=== PATIENT | female | born 1975 | race Caucasian/White ===

== ENCOUNTER 2019-06-21 06:06 | Outpatient (CLI) | payer OTHER, SELFPAY ==
--- NOTE | 2019-06-21 08:06 | MM_ITS ---
WS: [id number] BILATERAL SCREENING DIGITAL MAMMOGRAM WITH CAD HISTORY: SCREENING COMPARISON: 04/13/2018 Bilateral CC and MLO views submitted. Computer aided detection analyzed. Breast composition: The breasts are heterogeneously dense, which may obscure small masses. No suspici ous masses, microcalcifications or architectural distortion. Benign calcifications in each breast. MM/[place] [id number] IMPRESSION: BI-RADS: 2-Benign FOLLOW UP: 1 Year Follow-up
== END 2019-06-21 06:07 | disposition home or self-care (01) ==
LOC: RADSHAW 06:14
PROVIDERS: Family Provider Electrodiagnostic Medicine; PCP Electrodiagnostic Medicine; Visit Provider Electrodiagnostic Medicine
DX: Z12.31 Encounter for screening mammogram for malignant neoplasm of breast (principal)
CPT/HCPCS: 77067

== ENCOUNTER 2019-12-26 07:51 | Outpatient (CLI) | payer OTHER, SELFPAY ==
[2019-12-26 08:40] LABS: Basophils % 0.7 %; Eosinophils # 0.1 10^3/uL (0.0-0.8); Eosinophils % 2.3 %; Hematocrit 38.5 % (37.0-47.0); Lymphocytes # 2.2 10^3/uL (0.8-4.8); Lymphocytes % 36.1 %; Mean Corpuscular HGB Conc 33.8 g/dL (30.0-36.0); Mean Corpuscular Hemoglobin 29.7 pg (28.0-34.0); Mean Corpuscular Volume 88.1 fL (81-99); Mean Platelet Volume 9.3 fL (7.4-10.4); Monocytes # 0.4 10^3/uL (0.2-0.9); Monocytes % 5.7 %; Neutrophils # 3.33 10^3/uL (1.8-7.7); Neutrophils % 54.5 %; Nucleated Red Blood Cells % 0 %; Platelet Count 206 10^3/cmm (130-400); Red Blood Count 4.37 10^6/uL (4.1-5.3); Red Cell Distribution Width 13.1 % (12.1-15.1); White Blood Count 6.1 10^3/uL (4.0-10.0)
[2019-12-26 09:06] LABS: Alanine Aminotransferase 42 U/L (0-33); Albumin Level 4.4 g/dL (3.5-5.2); Alkaline Phosphatase 57 IU/L (35-105); Anion Gap 14.1 (5-19); Aspartate Amino Transferase 65 U/L (0-32); Blood Urea Nitrogen 11 mg/dL (6-20); Calcium 8.7 mg/dL (8.5-10.5); Carbon Dioxide 26 mmol/L (22-29); Chloride 103 mmol/L (98-107); Globulin 3.4 g/dL (1.3-4.6); Glomerular Filtration Rate 109.6 mL/min (90-130); Glucose 119 mg/dL (65-115); Lipase 21 U/L (13-60); Osmolality Calculated 285 mOsm/kg (285-295); Potassium 4.1 mmol/L (3.5-5.1); Sodium 139 mmol/L (136-145); Thyroid Stimulating Hormone 1.81 uIU/mL (0.27-4.20); Total Bilirubin 0.6 mg/dL (0.15-1.2); Total Protein 7.8 g/dL (6.6-8.7)
[2019-12-26 09:54] LABS: Estmated Average Glucose 146; Hemoglobin A1C 6.7 % (4.0-6.0)
== END 2019-12-26 07:52 | disposition home or self-care (01) ==
LOC: LAB 07:52
PROVIDERS: PCP Electrodiagnostic Medicine; Visit Provider Electrodiagnostic Medicine
DX: Z00.00 Encounter for general adult medical examination without abnormal findings (principal)
CPT/HCPCS: 36415; 80053; 83036; 83690; 84443; 85025

== ENCOUNTER 2020-01-22 14:19 | Emergency (ER) | payer OTHER, SELFPAY ==
[2020-01-22 14:30] VITALS: BMI 32.0
[2020-01-22 14:34] VITALS: BP 188/97; PULSE 78; RESP 16; TEMP 36.8; O2SAT 97
--- NOTE | 2020-01-22 15:11 | US_ITS ---
WS: [id number] EXAM: TRANSVAGINAL PELVIC SONOGRAM DATE OF EXAMINATION: 01/22/2020, 1547 hours COMPARISON: None. HISTORY: 44 years old with passing blood and clots since January 04. FINDINGS: Uterus measures 9.10 cm in length, 7.4 cm in width, and 5.8 in depth. Nabothian cysts are seen in the cervix. Left ovary measures 4.2 x 3.3 x 2.6 cm. Color-flow and spectral Doppler demonstrates flow within the left ovary. Right ovary measures 5.1 x 3.6 x 2.6 cm. Color-flow and spectral Doppler demonstrates flow within the right ovary. The endometrial complex is markedly thickened suggesting that there is underlying endometrial hyperpl bret. Estimated at 1.7 cm in thickness There is a mass lesion suspected to represent a polyp along th e right anterior uterine fundus. MARINE EQUIPMENT DESIGN ENGINEER evaluation recommended. Unlikely but endometrial neoplasm nee ds to be considered. Nabothian cysts are seen within both ovaries with color flow and spectral Doppler demonstrated flow w ithin both ovaries. Largest follicular cyst in the right ovary approximately 2 cm in size. Small amou nt of free fluid in the cul-de-sac. US/US transvaginal [id number] OPINION: Multiple nabothian cysts. Thickening of the endometrial complex. Suspected uter ine polyp/mass within the endometrial cavity. MARINE EQUIPMENT DESIGN ENGINEER referral and evaluation re commended. Normal appearance to both ovaries. Most prominent follicular cyst is approximat sergio 2 cm in size in the right ovary. Minimal free fluid within the cul-de-sac.
--- NOTE | 2020-01-22 15:12 | W.ED.FEMALGU ---
HPI - Female Genitourinary General: Chief complaint: Urogenital-Female Stated complaint: VAGINAL BLEEDING Time Seen by Provider: 01/22/20 14:41 Source: patient Mode of arrival: ambulatory Limitations: no limitations History of Present Illness: HPI Narrative: Patient is a very nice 44-year-old female who presents to ED today for an evaluation of vaginal bleeding. Patient tells me on January 04 she began spotting. She states spotting lasted approximately 5 days. She states following that (around January 10) bleeding increased and began passing golf ball size clots. She states over the past 2 to 3 days the flood griffin have opened . She states she is soaking through 2-3 pads an hour. Patient tells me she normally does have regular menstrual cycles however noticed last month was heavier than normal. She states that she is premenopausal. Patient does not complain of abdominal pain or pelvic cramping. She does have a small amount of lower back pain. Patient currently has an appointment with Dr. Richards on Monday. MD elicited complaint: vaginal bleeding Onset (ago): day(s) Consistency: constant Vaginal discharge: none Vaginal bleeding: heavy, dark red and clots Exacerbating factors: none Relieving factors: none Associated symptoms: Reports vaginal bleeding; Deny abdominal pain, headache(s), nausea or vaginal discharge Patient : No Date of Last Menstrual Period: 01/05/20 Review of Systems Const: Denies: fever(s), chills, body aches, fatigue or malaise Eyes: Denies: change in vision or blurry vision Card: Denies: chest pain Resp: Denies: dyspnea GI: Denies: abdominal pain, nausea, vomiting or diarrhea : Reports: vaginal bleeding; Denies: flank pain, difficulty voiding, dysuria, urinary frequency, urinary urgency, urinary hesitancy, vaginal odor, vaginal discharge or pelvic pain Musc: Reports: back pain Neuro: Reports: dizziness (mild); Denies: headache(s), numbness in extremities, weakness in extremities or sensory changes COUNT INCLUDES THE [facility] ED PFSH: Medical History (Updated 01/24/20 @ 15:30 by Christen Woodson APN, KRISTEN) Hypertension No pertinent past medical history neghx: dm,thyroid,dvt/pe Surgical History (Updated 01/24/20 @ 15:25 by Christen Woodson APN, KRISTEN) History of cholecystectomy Family History (Updated 01/24/20 @ 15:33 by Christen Woodson APN, KRISTEN) Grandmother Cancer MGM-- stomach cancer that mets to female organs Clotting disorder Mother Diabetes Chronic kidney disease (CKD) Grandfather Diabetes MGF Stroke MGF Father Thyroid cancer CAD (coronary artery disease) [place] Hypertension Stroke Denies family history of Bleeding disorder Social History Additional social history: - Tobacco use: Denies Alcohol use: Denies Drug use: Denies Female Reproductive History: Date of last menstrual period: 01/05/20 Physical Exam Const: COMMON NORMALS: no acute distress, patient oriented x3, no limitations and alert Resp: COMMON NORMALS: normal respiratory effort and clear to auscultation bilaterally AUSCULTATION: clear to auscultation bilaterally Cardio: COMMON NORMALS: regular rate and regular rhythm RATE: regular rate RHYTHM: regular rhythm GI: COMMON NORMALS: Normal to inspection, nondistended, normoactive bowel sounds present, Soft to palpation, non-tender, No hepatosplenomegaly present and no masses PALPATION: Yes Soft to palpation and Yes No hepatosplenomegaly present : COMMON NORMALS: Yes normal external appearance EXTERNAL FEMALE EXAM: Yes normal appearance of the urethra SPECULUM EXAM - VAGINA: Yes vaginal bleeding and Yes tissue present in vagina (small 2cm clot) SPECULUM EXAM - CERVIX: Yes Other cervical findings present (small amount of blood from cervical os) BIMANUAL EXAM - VAGINA & UTERUS: Yes Uterine tenderness OB/EXTERNAL & SPECULUM: tissue present in vagina (small 2cm clot) and vaginal bleeding Back/Pelvis: COMMON NORMALS: thoracic and lumbar spine normal to inspection, no thoracic nor lumbar tenderness and thoraco-lumbar ROM normal OTHER: mild pain across lower back Extremity: COMMON NORMALS: normal to inspection Neuro: COMMON NORMALS: patient oriented x3 SENSORIUM/ORIENTATION: Yes alert Skin: NARRATIVE SKIN EXAM: no pallor Course Consultations: Consultation #1: Dr. Ragsdale-recommends Lysteda 650mg (2 tabs) TID x 5 days Vital Signs: Vital signs: Vital Signs Temperature 98.2 F 01/22/20 14:34 Pulse Rate 87 01/22/20 17:16 Respiratory Rate 18 01/22/20 17:16 Blood Pressure 184/100 01/22/20 17:16 Pulse Oximetry 98 01/22/20 17:16 MDM - Female MDM Narrative: Medical decision making narrative: Patient is a nice 44 yo female here for evaluation of heavy vaginal bleeding. On exam she does have small amount of blood/clots coming from cervix and within vaginal canal. She had labs drawn last month and at that time H/H was 13/38.5. Today they are 10.3/31. Despite this drop, patient's vitals are stable. Her orthostatics are negative. She complains of very mild dizziness. Findings of physical exam, labs, and US were discussed with Dr. Ragsdale, PRIVATE SECRETARY admission liaison and we will place pt on Lysteda. She has an appointment with [facility] in 2 days for followup. Strict return to ED precautions given in the meantime. Lab Data: Labs: Lab Results 01/22/20 01/22/20 01/22/20 Range/Units 15:10 15:10 15:10 WBC 5.4 (4.0-10.0) 10^3/ uL RBC 3.52 L (4.1-5.3) 10^6/u L Hgb 10.3 L (11.5-15.3) g/dL Hct 31.0 L (37.0-47.0) % MCV 88.1 (81-99) fL MCH 29.3 (28.0-34.0) pg MCHC 33.2 (30.0-36.0) g/dL RDW 13.2 (12.1-15.1) % Plt Count 190 (130-400) 10^3/c mm MPV 9.2 (7.4-10.4) fL Neut % (Auto) 50.3 % Lymph % (Auto) 39.6 % [place] % (Auto) 5.6 % Eos % (Auto) 2.2 % Baso % (Auto) 0.6 % Neut # (Auto) 2.71 (1.8-7.7) 10^3/u L Lymph # (Auto) 2.1 (0.8-4.8) 10^3/u L [place] # (Auto) 0.3 (0.2-0.9) 10^3/u L Eos # (Auto) 0.1 (0.0-0.8) 10^3/u L Baso # (Auto) 0.0 (0.0-0.1) 10^3/u L Nucleated RBC % (a uto) 0 % Nucleated RBCs # 0.0 /100WBC PT 14.30 (12.1-14.9) SECO NDS INR 1.08 (0.8-1.2) APTT 32.1 (23.9-36.7) SECO NDS Sodium 138 (136-145) mmol/L Potassium 3.5 (3.5-5.1) mmol/L Chloride 105 (98-107) mmol/L Carbon Dioxide 26 (22-29) mmol/L Anion Gap 10.5 (5-19) BUN 12 (6-20) mg/dL Creatinine 0.6 (0.5-0.9) mg/dL GFR Calculation 109.6 (90-130) mL/min Glucose 173 H (65-115) mg/dL Calculated Osmolal ity 286 (285-295) mOsm/k g Calcium 8.8 (8.5-10.5) mg/dL Total Bilirubin 0.4 (0.15-1.2) mg/dL AST 35 H (0-32) U/L ALT 31 (0-33) U/L Alkaline Phosphata se 54 (35-105) IU/L Total Protein 6.8 (6.6-8.7) g/dL Albumin 4.1 (3.5-5.2) g/dL Globulin 2.7 (1.3-4.6) g/dL HCG, Qual (Negative) 01/21/ Range/Units 15:10 WBC (4.0-10.0) 10^3/ uL RBC (4.1-5.3) 10^6/u L Hgb (11.5-15.3) g/dL Hct (37.0-47.0) % MCV (81-99) fL MCH (28.0-34.0) pg MCHC (30.0-36.0) g/dL RDW (12.1-15.1) % Plt Count (130-400) 10^3/c mm MPV (7.4-10.4) fL Neut % (Auto) % Lymph % (Auto) % [place] % (Auto) % Eos % (Auto) % Baso % (Auto) % Neut # (Auto) (1.8-7.7) 10^3/u L Lymph # (Auto) (0.8-4.8) 10^3/u L [place] # (Auto) (0.2-0.9) 10^3/u L Eos # (Auto) (0.0-0.8) 10^3/u L Baso # (Auto) (0.0-0.1) 10^3/u L Nucleated RBC % (a uto) % Nucleated RBCs # /100WBC PT (12.1-14.9) SECO NDS INR (0.8-1.2) APTT (23.9-36.7) SECO NDS Sodium (136-145) mmol/L Potassium (3.5-5.1) mmol/L Chloride (98-107) mmol/L Carbon Dioxide (22-29) mmol/L Anion Gap (5-19) BUN (6-20) mg/dL Creatinine (0.5-0.9) mg/dL GFR Calculation (90-130) mL/min Glucose (65-115) mg/dL Calculated Osmolal ity (285-295) mOsm/k g Calcium (8.5-10.5) mg/dL Total Bilirubin (0.15-1.2) mg/dL AST (0-32) U/L ALT (0-33) U/L Alkaline Phosphata se (35-105) IU/L Total Protein (6.6-8.7) g/dL Albumin (3.5-5.2) g/dL Globulin (1.3-4.6) g/dL HCG, Qual Negative (Negative) Imaging Data: US TV: Radiologist's impression: [address] [address] Ultrasound Report Signed Patient: Rebecca Alvarez Unit #: [id number] : 1975 Age/Sex: 44 / F ADM Date: 01/22/20 Loc: ER Room/Bed: Attending Dr: Ordering Provider/Ordering MD: Jessica Garduno Date of Service: 01/22/20 Procedure(s): US transvaginal [id number] Accession Number(s): [id number] Report Number: [id number] WS: [id number] EXAM: TRANSVAGINAL PELVIC SONOGRAM DATE OF EXAMINATION: 01/22/2020, 1547 hours COMPARISON: None. HISTORY: 44 years old with passing blood and clots since January 04. FINDINGS: Uterus measures 9.10 cm in length, 7.4 cm in width, and 5.8 in depth. Nabothian cysts are seen in the cervix. Left ovary measures 4.2 x 3.3 x 2.6 cm. Color-flow and spectral Doppler demonstrates flow within the left ovary. Right ovary measures 5.1 x 3.6 x 2.6 cm. Color-flow and spectral Doppler demonstrates flow within the right ovary. The endometrial complex is markedly thickened suggesting that there is underlying endometrial hyperplasia. Estimated at 1.7 cm in thickness There is a mass lesion suspected to represent a polyp along the right anterior uterine fundus. ELECTRICIAN SUPERVISOR AIRPLANE evaluation recommended. Unlikely but endometrial neoplasm needs to be considered. Nabothian cysts are seen within both ovaries with color flow and spectral Doppler demonstrated flow within both ovaries. Largest follicular cyst in the right ovary approximately 2 cm in size. Small amount of free fluid in the cul-de-sac. US/US transvaginal [id number] OPINION: Multiple nabothian cysts. Thickening of the endometrial complex. Suspected uterine polyp/mass within the endometrial cavity. ELECTRICIAN SUPERVISOR AIRPLANE referral and evaluation recommended. Normal appearance to both ovaries. Most prominent follicular cyst is approximately 2 cm in size in the right ovary. Minimal free fluid within the cul-de-sac. Dictated By: Austyn Whitifeld MD Signed By: Austyn Whitfield MD Signed Date/Time: 01/22/201652 DD/ 48 Discharge Plan Discharge Patient Disposition: Home Clinical Impression: Menorrhagia, Endometrial thickening on ultrasound Condition: Stable Prescriptions: No Action hydrochlorothiazide 25 mg tablet 25 mg PO DAILY RF: 0 losartan 100 mg tablet 100 mg PO DAILY RF: 0 Discharge Orders: Discharge Order (Routine); Ordered 01/22/20 Ordered By: Jessica Garduno Referrals: Robbie Richards MD [Physician] - Aguilar Mcgregor DO [Primary Care Provider] - Activity Restrictions/Additional Instructions: As discussed fill your medication and begin it immediately. Please keep your appointment with Dr. Richards on Monday. Return to the emergency department immediately for even more severe vaginal bleeding, dizziness/lightheadedness, passing out episodes, or any other concerns you may have. Discharge Date/Time: 01/22/20 17:17 Coding Level of Care Code ED Qa Specialist for Chg Fwd Exam Detailed
[2020-01-22 15:21] LABS: Basophils % 0.6 %; Eosinophils # 0.1 10^3/uL (0.0-0.8); Eosinophils % 2.2 %; Hemoglobin 10.3 g/dL (11.5-15.3); Lymphocytes # 2.1 10^3/uL (0.8-4.8); Lymphocytes % 39.6 %; Mean Corpuscular HGB Conc 33.2 g/dL (30.0-36.0); Mean Corpuscular Hemoglobin 29.3 pg (28.0-34.0); Mean Corpuscular Volume 88.1 fL (81-99); Mean Platelet Volume 9.2 fL (7.4-10.4); Monocytes # 0.3 10^3/uL (0.2-0.9); Monocytes % 5.6 %; Neutrophils # 2.71 10^3/uL (1.8-7.7); Neutrophils % 50.3 %; Nucleated Red Blood Cells % 0 %; Platelet Count 190 10^3/cmm (130-400); Red Blood Count 3.52 10^6/uL (4.1-5.3); Red Cell Distribution Width 13.2 % (12.1-15.1); White Blood Count 5.4 10^3/uL (4.0-10.0)
[2020-01-22 15:33] LABS: INR 1.08 (0.8-1.2)
[2020-01-22 15:34] LABS: Partial Thromboplastin Time 32.1 SECONDS (23.9-36.7)
[2020-01-22 15:42] LABS: Alanine Aminotransferase 31 U/L (0-33); Albumin Level 4.1 g/dL (3.5-5.2); Alkaline Phosphatase 54 IU/L (35-105); Anion Gap 10.5 (5-19); Aspartate Amino Transferase 35 U/L (0-32); Blood Urea Nitrogen 12 mg/dL (6-20); Calcium 8.8 mg/dL (8.5-10.5); Carbon Dioxide 26 mmol/L (22-29); Chloride 105 mmol/L (98-107); Creatinine Clr Calc Pharmacy 152.5084; Globulin 2.7 g/dL (1.3-4.6); Glomerular Filtration Rate 109.6 mL/min (90-130); Glucose 173 mg/dL (65-115); Osmolality Calculated 286 mOsm/kg (285-295); Potassium 3.5 mmol/L (3.5-5.1); Sodium 138 mmol/L (136-145); Total Bilirubin 0.4 mg/dL (0.15-1.2); Total Protein 6.8 g/dL (6.6-8.7)
[2020-01-22 15:43] LABS: HCG, Serum Qual Negative (Negative)
[2020-01-22 16:07] VITALS: BP 175/105; BP 186/114; PULSE 87; PULSE 88
[2020-01-22 17:16] VITALS: BP 184/100; PULSE 87; RESP 18; O2SAT 98
== END 2020-01-22 17:17 | disposition home or self-care (01) ==
PROVIDERS: Emergency Provider Physician Assistant; PCP Electrodiagnostic Medicine
DX: N92.0 Excessive and frequent menstruation with regular cycle (principal); R93.89 Abnormal findings on diagnostic imaging of other specified body structures; I10 Essential (primary) hypertension
CPT/HCPCS: 12345; 36415; 76830; 80053; 84703; 85025; 85610; 85730; 99282; 99283; E0352

== ENCOUNTER → 2020-01-24 15:42 | Outpatient (BNVA) | payer OTHER, SELFPAY | PROVIDERS: PCP Electrodiagnostic Medicine; Visit Provider Nurse Practitioner Women's Health | DX: N93.9 Abnormal uterine and vaginal bleeding, unspecified (principal) | CPT/HCPCS: 81025; 88305 ==

== ENCOUNTER → 2020-02-13 15:39 | Outpatient (BNVA) | payer OTHER, SELFPAY | PROVIDERS: PCP Electrodiagnostic Medicine; Visit Provider Obstetrics & Gynecology | DX: Z30.9 Encounter for contraceptive management, unspecified (principal); N93.9 Abnormal uterine and vaginal bleeding, unspecified | CPT/HCPCS: 81025 ==

== ENCOUNTER → 2020-03-08 12:38 | Outpatient (BNVA) | payer OTHER, SELFPAY | PROVIDERS: PCP Electrodiagnostic Medicine; Visit Provider Family Medicine | DX: Z20.828 Contact with and (suspected) exposure to other viral communicable diseases (principal) | CPT/HCPCS: 87635 ==

== ENCOUNTER → 2020-03-15 12:29 | Outpatient (BNVA) | payer OTHER, SELFPAY | PROVIDERS: PCP Electrodiagnostic Medicine; Visit Provider Family Medicine | DX: Z20.828 Contact with and (suspected) exposure to other viral communicable diseases (principal) | CPT/HCPCS: 87635 ==

== ENCOUNTER → 2020-03-22 13:01 | Outpatient (BNVA) | payer OTHER, SELFPAY | PROVIDERS: PCP Electrodiagnostic Medicine; Visit Provider Family Medicine | DX: Z20.828 Contact with and (suspected) exposure to other viral communicable diseases (principal) | CPT/HCPCS: 87635 ==

== ENCOUNTER → 2020-03-29 13:20 | Outpatient (BNVA) | payer OTHER, SELFPAY | PROVIDERS: PCP Electrodiagnostic Medicine; Visit Provider Family Medicine | DX: Z11.59 Encounter for screening for other viral diseases (principal) | CPT/HCPCS: 87635 ==

== ENCOUNTER → 2020-04-05 11:49 | Outpatient (BNVA) | payer OTHER, SELFPAY | PROVIDERS: PCP Electrodiagnostic Medicine; Visit Provider Family Medicine | DX: Z11.59 Encounter for screening for other viral diseases (principal) | CPT/HCPCS: 87635 ==

== ENCOUNTER → 2020-04-12 10:38 | Outpatient (BNVA) | payer OTHER, SELFPAY | PROVIDERS: PCP Electrodiagnostic Medicine; Visit Provider Family Medicine | DX: Z20.828 Contact with and (suspected) exposure to other viral communicable diseases (principal) | CPT/HCPCS: 87635 ==

== ENCOUNTER → 2020-04-19 10:47 | Outpatient (BNVA) | payer OTHER, SELFPAY | PROVIDERS: PCP Electrodiagnostic Medicine; Visit Provider Family Medicine | DX: Z20.828 Contact with and (suspected) exposure to other viral communicable diseases (principal) | CPT/HCPCS: 87635 ==

== ENCOUNTER → 2020-04-26 11:43 | Outpatient (BNVA) | payer OTHER, SELFPAY | PROVIDERS: PCP Electrodiagnostic Medicine; Visit Provider Family Medicine | DX: Z20.828 Contact with and (suspected) exposure to other viral communicable diseases (principal) | CPT/HCPCS: 87635 ==

== ENCOUNTER → 2020-05-03 12:31 | Outpatient (BNVA) | payer OTHER, SELFPAY | PROVIDERS: PCP Electrodiagnostic Medicine; Visit Provider Family Medicine | DX: Z20.828 Contact with and (suspected) exposure to other viral communicable diseases (principal) | CPT/HCPCS: 87635 ==

== ENCOUNTER → 2020-05-17 12:15 | Outpatient (BNVA) | payer OTHER, SELFPAY | PROVIDERS: PCP Electrodiagnostic Medicine; Visit Provider Family Medicine | DX: Z20.828 Contact with and (suspected) exposure to other viral communicable diseases (principal) | CPT/HCPCS: 87635 ==

== ENCOUNTER → 2020-05-24 10:24 | Outpatient (BNVA) | payer OTHER, SELFPAY | PROVIDERS: PCP Electrodiagnostic Medicine; Visit Provider Family Medicine | DX: U07.1 COVID-19 (principal) | CPT/HCPCS: 87635 ==

== ENCOUNTER → 2020-05-31 13:31 | Outpatient (BNVA) | payer OTHER, SELFPAY | PROVIDERS: PCP Electrodiagnostic Medicine; Visit Provider Family Medicine | DX: Z20.828 Contact with and (suspected) exposure to other viral communicable diseases (principal) | CPT/HCPCS: 87635 ==

== ENCOUNTER → 2020-06-07 12:16 | Outpatient (BNVA) | payer OTHER, SELFPAY | PROVIDERS: PCP Electrodiagnostic Medicine; Visit Provider Family Medicine | DX: Z20.828 Contact with and (suspected) exposure to other viral communicable diseases (principal) | CPT/HCPCS: 87635 ==

== ENCOUNTER → 2020-06-14 12:34 | Outpatient (BNVA) | payer OTHER, SELFPAY | PROVIDERS: PCP Electrodiagnostic Medicine; Visit Provider Family Medicine | DX: Z20.828 Contact with and (suspected) exposure to other viral communicable diseases (principal) | CPT/HCPCS: 87635 ==

== ENCOUNTER → 2020-06-21 11:29 | Outpatient (BNVA) | payer OTHER, SELFPAY | PROVIDERS: PCP Electrodiagnostic Medicine; Visit Provider Family Medicine | DX: Z20.828 Contact with and (suspected) exposure to other viral communicable diseases (principal) | CPT/HCPCS: 87635 ==

== ENCOUNTER → 2020-06-28 11:52 | Outpatient (BNVA) | payer OTHER, SELFPAY | PROVIDERS: PCP Electrodiagnostic Medicine; Visit Provider Family Medicine | DX: Z20.822 Contact with and (suspected) exposure to COVID-19 (principal) | CPT/HCPCS: 87635 ==

== ENCOUNTER → 2020-07-05 12:17 | Outpatient (BNVA) | payer OTHER, SELFPAY | PROVIDERS: PCP Electrodiagnostic Medicine; Visit Provider Family Medicine | DX: Z20.822 Contact with and (suspected) exposure to COVID-19 (principal) | CPT/HCPCS: 87635 ==

== ENCOUNTER → 2020-07-12 12:31 | Outpatient (BNVA) | payer OTHER, SELFPAY | PROVIDERS: PCP Electrodiagnostic Medicine; Visit Provider Family Medicine | DX: Z20.822 Contact with and (suspected) exposure to COVID-19 (principal) | CPT/HCPCS: 87635 ==

== ENCOUNTER → 2020-07-25 13:56 | Outpatient (BNVA) | payer OTHER, SELFPAY | PROVIDERS: PCP Electrodiagnostic Medicine; Visit Provider Family Medicine | DX: Z20.822 Contact with and (suspected) exposure to COVID-19 (principal) | CPT/HCPCS: 87635 ==

== ENCOUNTER → 2020-08-01 13:14 | Outpatient (BNVA) | payer OTHER, SELFPAY | PROVIDERS: PCP Electrodiagnostic Medicine; Visit Provider Family Medicine | DX: Z20.822 Contact with and (suspected) exposure to COVID-19 (principal) | CPT/HCPCS: 87635 ==

== ENCOUNTER → 2020-08-08 11:54 | Outpatient (BNVA) | payer OTHER, SELFPAY | PROVIDERS: PCP Electrodiagnostic Medicine; Visit Provider Family Medicine | DX: Z20.822 Contact with and (suspected) exposure to COVID-19 (principal) | CPT/HCPCS: 87635 ==

== ENCOUNTER → 2020-08-22 12:41 | Outpatient (BNVA) | payer OTHER, SELFPAY | PROVIDERS: PCP Electrodiagnostic Medicine; Visit Provider Family Medicine | DX: Z20.822 Contact with and (suspected) exposure to COVID-19 (principal) | CPT/HCPCS: 87635 ==

== ENCOUNTER 2020-09-01 20:34 | Emergency (ER) | payer OTHER, SELFPAY ==
--- NOTE | 2020-09-01 20:37 | XR_ITS ---
WS: [id number] LEFT HAND: 3 VIEW(S) TECHNIQUE: PA, oblique and lateral. HISTORY: injury COMPARISON: None available. No acute fracture or dislocation. Large amount of edema and soft tissue injury over the dorsal surface of the hand at the level of the metacarpals. There is air in the soft tissues gliosis associated with the metacarpals. No fractures. No foreign body. XR/XR hand LT min 3V* [id number] IMPRESSION: Large amount of soft tissue injury with edema and air over the dorsal surface o f the hand.
[2020-09-01 20:52] VITALS: BP 175/119; PULSE 86; RESP 22; TEMP 37.1; O2SAT 99; BMI 32.5
--- NOTE | 2020-09-01 22:31 | ED_ITS ---
HPI - Animal Bite General: Chief Complaint: Animal Bite Stated Complaint: DOG BITE/L HAND Time Seen by Provider: 09/01/20 21:36 History of Present Illness: HPI narrative: Patient has dog bites to both hands. Has laceration to the back of left hand. Dog is up-to-date vaccination. Was her dogs at home she tried to break up a fight between dogs. Complains of pain. complaint: animal bite Onset (ago): minute(s) Animal: dog Description of animal: household pet Mechanism: bite Location - Extremities: Bilateral: hand Pain description: sharp Severity scale (1-10): 3 Context: animals fighting Associated symptoms: Reports no associated symptoms; Deny chills, fever(s) or headache(s) Review of Systems Const: Denies: fever(s), chills or body aches Eyes: Denies: change in vision or blurry vision ENMT: Denies: throat pain or nasal congestion Card: Denies: chest pain or dyspnea on exertion Resp: Denies: dyspnea, productive cough or non-productive cough GI: Denies: abdominal pain, nausea or vomiting Musc: Denies: extremity pain Skin/Breast: Reports: other (Bites to both hands with a laceration on the back left hand); Denies: rash Neuro: Denies: headache(s) Psych: Denies: anxiety or depression Tj/Lymph: Denies: easy bruising PFS ED PFSH: Medical History (Updated 09/01/20 @ 22:30 by IFTIKHAR Coleman) Hypertension No pertinent past medical history neghx: dm,thyroid,dvt/pe Obesity (BMI 30.0-34.9) Surgical History History of cholecystectomy Family History Grandmother Cancer MGM-- stomach cancer that mets to female organs Clotting disorder Mother Diabetes Chronic kidney disease (CKD) Grandfather Diabetes MGF Stroke MGF Father Thyroid cancer CAD (coronary artery disease) [place] Hypertension Stroke Denies family history of Bleeding disorder Social History (Updated 02/16/20 @ 15:12 by Robbie Richards MD) Smoking and tobacco status: never smoked Alcohol intake: never Additional social history: - Tobacco use: Denies Alcohol use: Denies Drug use: Denies Female Reproductive History: Date of last menstrual period: 01/05/20 Physical Exam Const: COMMON NORMALS: no acute distress, average body habitus and patient oriented x3 HENMT: COMMON NORMALS: normocephalic HEAD & SCALP: normal to inspection and normocephalic FACE & SINUS: normal facial exam Eye: GENERAL EYE: appearance normal, both eyes and all related structures Neck/C-Spine: COMMON NORMALS: no JVD Chest: COMMONS NORMALS: normal inspection of the chest Resp: COMMON NORMALS: normal respiratory effort Cardio: COMMON NORMALS: no JVD, regular rate and regular rhythm RATE: regular rate RHYTHM: regular rhythm GI: INSPECTION: Yes normal to inspection Extremity: COMMON NORMALS: normal to inspection and full ROM LEFT UPPER EXTREMITY: Yes hand & digits (Good range of motion tendons work without difficulty neurovascular intact) Neuro: COMMON NORMALS: patient oriented x3 Skin: OTHER: Patient has scattered small puncture wounds on right hand. Left hand she has a 2 cm laceration on dorsum of hand I semiclose this with Steri- Strips. Also has small lack to base of index finger 1 to 2 mm in size. Does have good movement of the hand but is very tender on the dorsum of the hand underneath the laceration. Procedures Laceration Laceration 1: Site: hand Side (If applicable): left Size (cm): 2 Depth: simple, single layer Pre-repair: irrigated extensively and deep structures intact Skin layer closed with: other (Steri-Strips) Course Vital Signs: Vital signs: Vital Signs Temperature 98.8 F 09/01/20 20:52 Pulse Rate 86 09/01/20 20:52 Respiratory Rate 22 H 09/01/20 20:52 Blood Pressure 175/119 09/01/20 20:52 Pulse Oximetry 99 09/01/20 20:52 Discharge Plan Discharge Patient Disposition: Home Clinical Impression: Laceration Dog bite Qualifiers: Encounter type: initial encounter Qualified Code(s): W54.0XXA - Bitten by dog, initial encounter Condition: Stable Prescriptions: New clindamycin HCl 300 mg capsule 300 mg PO Q8H 7 Days Qty: 21 RF: 0 No Action hydrochlorothiazide 25 mg tablet 25 mg PO DAILY RF: 0 losartan 100 mg tablet 100 mg PO DAILY RF: 0 Discharge Orders: Discharge ED (Routine); Ordered 09/01/20 Ordered By: Kip Wade Referrals: Aguilar Mcgregor, [Primary Care Provider] - Discharge Diet: Usual diet Discharge Activity: Resume usual activity Patient Instructions: Animal Bite (ED) Activity Restrictions/Additional Instructions: Follow-up with medical provider as directed. Take medications as prescribed. Return to the ER or your medical provider if condition worsens. Please read and understand discharge instructions. If any questions ask please. Observe for signs of infection. Can follow back up with family doctor if worsening symptoms. Coding Level of Care Code ED Preschool Principal for Lynsey Watt
[2020-09-01] MEDS: clindamycin 150 mg Capsule 300 MG PO (22:41)
[2020-09-01] MEDS: tetanus-dipt-pertussis 0.5 mL SDV IM (22:41)
[2020-09-01 22:47] VITALS: BP 172/114; PULSE 87; RESP 18; TEMP 36.6; O2SAT 97
== END 2020-09-01 22:52 | disposition home or self-care (01) ==
PROVIDERS: Emergency Provider Nurse Practitioner Family; PCP Electrodiagnostic Medicine
DX: S61.452A Open bite of left hand, initial encounter (principal); W54.0XXA Bitten by dog, initial encounter; I10 Essential (primary) hypertension; Z23 Encounter for immunization
CPT/HCPCS: 73130; 90471; 90715; 99283

== ENCOUNTER → 2020-09-10 14:57 | Outpatient (BNVA) | payer OTHER, SELFPAY | PROVIDERS: PCP Electrodiagnostic Medicine; Visit Provider Family Medicine | DX: Z20.822 Contact with and (suspected) exposure to COVID-19 (principal) | CPT/HCPCS: 87635 ==

== ENCOUNTER 2020-09-16 07:39 | Outpatient (CLI) | payer OTHER, SELFPAY ==
--- NOTE | 2020-09-16 07:44 | MM_ITS ---
WS: [id number] BILATERAL DIGITAL DIAGNOSTIC MAMMOGRAM MAMMOGRAPHY WITH CAD CLINICAL INFORMATION: FRACISCO BREAST LUMPS COMPARISON: June 21, 2019 TECHNIQUE: Bilateral CC, MLO, and ML views. FINDINGS: The breasts are composed of heterogeneous fibroglandular density, which can limit the detection of sm all underlying mass lesions. Palpable markers bilateral breasts. No definite underlying mammographic abnormalities in the areas of palpable concern. Ultrasound is pending. Heterogeneous breast parenchyma is similar in appearance to June 21, 2019. Incidental benign calci fications. ULTRASOUND BREAST BILATERAL TECHNIQUE: Ultrasound left breast focused area of concern. CLINICAL INFORMATION: FRACISCO BREAST LUMPS COMPARISON: None. FINDINGS: Ultrasound breast bilateral in the areas of concern. Ultrasound right breast at the 6 clock position 3 cm from the nipple and 1:00 position 3 cm from the nipple. Incidental 4 mm cyst at the 6 clock position. No suspicious abnormalities at the 1:00 positio n Ultrasound left breast at the 10:00 position 4 cm from the nipple and 3:00 position 5 cm from the nip ple. No suspicious abnormalities to 10:00 position. Incidental lymph node at the 3:00 position measur ing 4 mm. No suspicious abnormalities in either breast. No lesions to target for biopsy. MM/[place] [id number] IMPRESSION: BI-RADS: 2-Benign FOLLOW UP: 1 Year Follow-up Recommend return to annual screening mammography.
== END 2020-09-16 07:40 | disposition home or self-care (01) ==
LOC: RADSHAW 07:42
PROVIDERS: PCP Electrodiagnostic Medicine; Visit Provider Electrodiagnostic Medicine
DX: N63.15 Unspecified lump in the right breast, overlapping quadrants (principal); N63.22 Unspecified lump in the left breast, upper inner quadrant
CPT/HCPCS: 76642; 77066

== ENCOUNTER → 2021-01-08 11:26 | Outpatient (BNVA) | payer OTHER, SELFPAY | PROVIDERS: PCP Electrodiagnostic Medicine; Visit Provider Family Medicine | DX: Z01.812 Encounter for preprocedural laboratory examination (principal); Z20.822 Contact with and (suspected) exposure to COVID-19 | CPT/HCPCS: 87635 ==

== ENCOUNTER → 2021-01-15 12:22 | Outpatient (BNVA) | payer OTHER, SELFPAY | PROVIDERS: PCP Electrodiagnostic Medicine; Visit Provider Family Medicine | DX: Z01.812 Encounter for preprocedural laboratory examination (principal); Z20.822 Contact with and (suspected) exposure to COVID-19 | CPT/HCPCS: 87635 ==

== ENCOUNTER → 2021-01-22 09:39 | Outpatient (BNVA) | payer OTHER, SELFPAY | PROVIDERS: PCP Electrodiagnostic Medicine; Visit Provider Family Medicine | DX: Z20.822 Contact with and (suspected) exposure to COVID-19 (principal) | CPT/HCPCS: 87635 ==

== ENCOUNTER → 2021-02-05 14:10 | Outpatient (BNVA) | payer OTHER, SELFPAY | PROVIDERS: PCP Electrodiagnostic Medicine; Visit Provider Family Medicine | DX: Z01.812 Encounter for preprocedural laboratory examination (principal); Z20.822 Contact with and (suspected) exposure to COVID-19 | CPT/HCPCS: 87635 ==

== ENCOUNTER → 2021-02-12 16:04 | Outpatient (BNVA) | payer OTHER, SELFPAY | PROVIDERS: PCP Electrodiagnostic Medicine; Visit Provider Family Medicine | DX: Z20.828 Contact with and (suspected) exposure to other viral communicable diseases (principal) | CPT/HCPCS: 87635 ==

== ENCOUNTER → 2021-02-22 14:09 | Outpatient (BNVA) | payer SELFPAY | PROVIDERS: PCP Electrodiagnostic Medicine; Visit Provider Family Medicine | DX: Z01.812 Encounter for preprocedural laboratory examination (principal); Z20.822 Contact with and (suspected) exposure to COVID-19 | CPT/HCPCS: 87635 ==

== ENCOUNTER → 2021-02-26 14:01 | Outpatient (BNVA) | payer OTHER, SELFPAY | PROVIDERS: PCP Electrodiagnostic Medicine; Visit Provider Family Medicine | DX: Z20.822 Contact with and (suspected) exposure to COVID-19 (principal) | CPT/HCPCS: 87635 ==

== ENCOUNTER → 2021-03-05 15:42 | Outpatient (BNVA) | payer SELFPAY | PROVIDERS: PCP Electrodiagnostic Medicine; Visit Provider Family Medicine | DX: Z20.822 Contact with and (suspected) exposure to COVID-19 (principal) | CPT/HCPCS: 87635 ==

== ENCOUNTER → 2021-03-12 11:14 | Outpatient (BNVA) | payer SELFPAY | PROVIDERS: PCP Electrodiagnostic Medicine; Visit Provider Family Medicine | DX: Z20.828 Contact with and (suspected) exposure to other viral communicable diseases (principal) | CPT/HCPCS: 87635 ==

== ENCOUNTER → 2021-03-19 10:10 | Outpatient (BNVA) | payer SELFPAY | PROVIDERS: PCP Electrodiagnostic Medicine; Visit Provider Family Medicine | DX: Z20.822 Contact with and (suspected) exposure to COVID-19 (principal); Z01.812 Encounter for preprocedural laboratory examination | CPT/HCPCS: 87635 ==

== ENCOUNTER → 2021-03-26 11:23 | Outpatient (BNVA) | payer SELFPAY | PROVIDERS: PCP Electrodiagnostic Medicine; Visit Provider Family Medicine | DX: Z20.828 Contact with and (suspected) exposure to other viral communicable diseases (principal) | CPT/HCPCS: 87635 ==

== ENCOUNTER → 2021-04-09 12:57 | Outpatient (BNVA) | payer SELFPAY | PROVIDERS: PCP Electrodiagnostic Medicine; Visit Provider Family Medicine | DX: Z20.822 Contact with and (suspected) exposure to COVID-19 (principal); Z01.812 Encounter for preprocedural laboratory examination | CPT/HCPCS: 87635 ==

== ENCOUNTER → 2021-04-16 14:13 | Outpatient (BNVA) | payer SELFPAY | PROVIDERS: PCP Electrodiagnostic Medicine; Visit Provider Family Medicine | DX: Z20.822 Contact with and (suspected) exposure to COVID-19 (principal); Z01.812 Encounter for preprocedural laboratory examination | CPT/HCPCS: 87635 ==

== ENCOUNTER → 2021-04-23 15:25 | Outpatient (BNVA) | payer SELFPAY | PROVIDERS: PCP Electrodiagnostic Medicine; Visit Provider Family Medicine | DX: Z20.822 Contact with and (suspected) exposure to COVID-19 (principal); Z01.812 Encounter for preprocedural laboratory examination | CPT/HCPCS: 87635 ==

== ENCOUNTER → 2021-04-30 10:15 | Outpatient (BNVA) | payer SELFPAY | PROVIDERS: PCP Electrodiagnostic Medicine; Visit Provider Family Medicine | DX: Z01.812 Encounter for preprocedural laboratory examination (principal); Z20.822 Contact with and (suspected) exposure to COVID-19 | CPT/HCPCS: 87635 ==

== ENCOUNTER → 2021-05-07 10:19 | Outpatient (BNVA) | payer SELFPAY | PROVIDERS: PCP Electrodiagnostic Medicine; Visit Provider Family Medicine | DX: Z20.822 Contact with and (suspected) exposure to COVID-19 (principal); Z01.812 Encounter for preprocedural laboratory examination | CPT/HCPCS: 87635 ==

== ENCOUNTER → 2021-05-13 11:47 | Outpatient (BNVA) | payer SELFPAY | PROVIDERS: PCP Electrodiagnostic Medicine; Visit Provider Family Medicine | DX: Z01.812 Encounter for preprocedural laboratory examination (principal); Z20.822 Contact with and (suspected) exposure to COVID-19 | CPT/HCPCS: 87635 ==

== ENCOUNTER → 2021-05-20 10:17 | Outpatient (BNVA) | payer SELFPAY | PROVIDERS: PCP Electrodiagnostic Medicine; Visit Provider Family Medicine | DX: Z01.812 Encounter for preprocedural laboratory examination (principal); Z20.822 Contact with and (suspected) exposure to COVID-19 | CPT/HCPCS: 87635 ==

== ENCOUNTER → 2021-06-07 13:34 | Outpatient (BNVA) | payer SELFPAY | PROVIDERS: PCP Electrodiagnostic Medicine; Visit Provider Family Medicine | DX: Z01.812 Encounter for preprocedural laboratory examination (principal); Z20.822 Contact with and (suspected) exposure to COVID-19 | CPT/HCPCS: 87635 ==

== ENCOUNTER → 2021-06-11 14:49 | Outpatient (BNVA) | payer SELFPAY | PROVIDERS: PCP Electrodiagnostic Medicine; Visit Provider Family Medicine | DX: Z20.828 Contact with and (suspected) exposure to other viral communicable diseases (principal) | CPT/HCPCS: 87635 ==

== ENCOUNTER → 2021-06-18 14:46 | Outpatient (BNVA) | payer SELFPAY | PROVIDERS: PCP Electrodiagnostic Medicine; Visit Provider Family Medicine | DX: Z01.812 Encounter for preprocedural laboratory examination (principal); Z20.822 Contact with and (suspected) exposure to COVID-19 | CPT/HCPCS: 87635 ==

== ENCOUNTER → 2021-06-25 10:06 | Outpatient (BNVA) | payer SELFPAY | PROVIDERS: PCP Electrodiagnostic Medicine; Visit Provider Family Medicine | DX: Z01.812 Encounter for preprocedural laboratory examination (principal); Z20.822 Contact with and (suspected) exposure to COVID-19 | CPT/HCPCS: 87635 ==

== ENCOUNTER → 2021-06-28 13:33 | Outpatient (BNVA) | payer BC, SELFPAY | PROVIDERS: PCP Electrodiagnostic Medicine; Referring Provider Electrodiagnostic Medicine; Visit Provider Podiatrist Foot & Ankle Surgery | DX: M79.671 Pain in right foot (principal); M79.672 Pain in left foot; M21.611 Bunion of right foot | CPT/HCPCS: 73630 ==

== ENCOUNTER → 2021-07-02 09:47 | Outpatient (BNVA) | payer BC, SELFPAY | PROVIDERS: PCP Electrodiagnostic Medicine; Visit Provider Family Medicine | DX: Z01.812 Encounter for preprocedural laboratory examination (principal); Z20.822 Contact with and (suspected) exposure to COVID-19 | CPT/HCPCS: 87635 ==

== ENCOUNTER → 2021-07-16 09:56 | Outpatient (BNVA) | payer BC, SELFPAY | PROVIDERS: PCP Electrodiagnostic Medicine; Visit Provider Family Medicine | DX: Z01.812 Encounter for preprocedural laboratory examination (principal); Z20.822 Contact with and (suspected) exposure to COVID-19 | CPT/HCPCS: 87635 ==

== ENCOUNTER → 2021-07-23 11:12 | Outpatient (BNVA) | payer BC, SELFPAY | PROVIDERS: PCP Electrodiagnostic Medicine; Visit Provider Family Medicine | DX: Z01.812 Encounter for preprocedural laboratory examination (principal); Z20.822 Contact with and (suspected) exposure to COVID-19 | CPT/HCPCS: 87635 ==

== ENCOUNTER → 2021-07-30 11:32 | Outpatient (BNVA) | payer BC, SELFPAY | PROVIDERS: PCP Electrodiagnostic Medicine; Visit Provider Family Medicine | DX: Z01.812 Encounter for preprocedural laboratory examination (principal); Z20.822 Contact with and (suspected) exposure to COVID-19 | CPT/HCPCS: 87635 ==

== ENCOUNTER → 2021-08-06 11:01 | Outpatient (BNVA) | payer BC, SELFPAY | PROVIDERS: PCP Electrodiagnostic Medicine; Visit Provider Family Medicine | DX: Z20.822 Contact with and (suspected) exposure to COVID-19 (principal) | CPT/HCPCS: 87635 ==

== ENCOUNTER → 2021-08-12 11:14 | Outpatient (BNVA) | payer BC, SELFPAY | PROVIDERS: PCP Electrodiagnostic Medicine; Visit Provider Family Medicine | DX: Z20.822 Contact with and (suspected) exposure to COVID-19 (principal); Z01.812 Encounter for preprocedural laboratory examination | CPT/HCPCS: 87635 ==

== ENCOUNTER 2023-05-27 05:18 | Emergency (ER) | payer OTHER, SELFPAY ==
[2023-05-27 05:32] VITALS: BP 176/101; PULSE 69; RESP 16; TEMP 36.6; O2SAT 99
--- NOTE | 2023-05-27 06:01 | XRR_ITS ---
PROCEDURE INFORMATION: Exam: XR Right Shoulder Exam date and time: 05/27/2023 6:11 AM Age: 47 years old Clinical indication: Right; Patient HX: C/O RT shoulder pain. History of tendon injury. ; Additional info: R shoulder pain TECHNIQUE: Imaging protocol: Radiologic exam of the right shoulder. Views: 2 or more views. COMPARISON: CR XR chest 2V* [id number] 12/19/2022 3:43 PM FINDINGS: Bones/joints: Moderate acromioclavicular and glenohumeral narrowing and spurring. No. Small calcification adjacent to the greater tuberosity represents calcific tendinitis or bursitis. Soft tissues: Normal. XR/XR shoulder RT min 2V* [id number] IMPRESSION: No acute abnormality.
--- NOTE | 2023-05-27 06:08 | ED_ITS ---
HPI - Extremity Problem General: Chief complaint: Extremity Injury, Upper Stated complaint: torn tendon, would like to see Marlo steiner Time Seen by Provider: 05/27/23 05:47 History of Present Illness: 47-year-old female with at least a week of right-sided shoulder pain following lifting a fryer. She is having trouble sleeping because of the pain. The pain radiates from the shoulder down towards the elbow and up towards the neck. It seems to emanate from the shoulder. She has pain with shoulder movement. Not so much with neck movement. No fever. She states that she used to get cortisone shots in her shoulder for similar pain, but it has been years ago . Associated symptoms: Deny chest pain or fever(s) Review of Systems Const: Denies: fever(s) ENMT: Denies: throat pain Card: Denies: chest pain Resp: Denies: dyspnea GI: Reports: nausea; Denies: vomiting Musc: Reports: neck pain and joint pain PFS ED PFSH: Medical History Hypertension No pertinent past medical history neghx: dm,thyroid,dvt/pe Obesity (BMI 30.0-34.9) Surgical History History of cholecystectomy Family History Grandmother Cancer MGM-- stomach cancer that mets to female organs Clotting disorder Mother Diabetes Chronic kidney disease (CKD) Grandfather Diabetes MGF Stroke MGF Father Thyroid cancer CAD (coronary artery disease) [place] Hypertension Stroke Denies family history of Bleeding disorder Social History Smoking and tobacco/nicotine status: never used tobacco/nicotine Alcohol intake: never Additional social history: - Tobacco use: Denies Alcohol use: Denies Drug use: Denies Physical Exam Const: COMMON NORMALS: no acute distress GENERAL APPEARANCE: cooperative; not ill appearing and not frail appearing HENMT: COMMON NORMALS: normocephalic, atraumatic and Normal external nose present HEAD & SCALP: normocephalic and atraumatic FACE & SINUS: normal facial exam and face symmetric NOSE: Normal external nose present Eye: COMMON NORMALS: Equal, round and reactive pupils present and EOMs intact bilaterally PUPIL: Yes Equal, round and reactive pupils present Neck/C-Spine: GENERAL: Yes trachea midline Chest: CHEST: Yes Symmetrical chest wall rise Resp: COMMON NORMALS: normal respiratory effort, No retractions, No use of accessory muscles and clear to auscultation bilaterally AUSCULTATION: clear to auscultation bilaterally Cardio: COMMON NORMALS: regular rate and regular rhythm RATE: regular rate RHYTHM: regular rhythm GI: COMMON NORMALS: Normal to inspection, nondistended, normoactive bowel sounds present Extremity: NARRATIVE EXTREMITY EXAM: Exam the right shoulder reveals tenderness to palpation of the lateral shoulder. There is pain with speeds testing, full can testing. There is mild tenderness over the biceps groove. No shoulder deformity. Pain with range of motion actively. Neuro: RENU COMA SCALE: document GCS findings Renu coma scale eye opening: Spontaneous [place] coma scale verbal response: Orientated [place] coma scale motor response: Obey commands Rneu coma scale total score: 15 SENSORY EXAM: Yes extremities (intact) Psych: COMMON NORMALS: speech normal SPEECH: Yes normal speech Skin: COMMON NORMALS: no rashes or lesions noted GENERAL SKIN EXAM: no rashes or lesions noted Course Vital Signs: Vital signs: Vital Signs Temperature 97.9 F 05/27/23 05:32 Pulse Rate 76 05/27/23 06:40 Respiratory Rate 18 05/27/23 06:40 Blood Pressure 176/101 05/27/23 05:32 Pulse Oximetry 97 05/27/23 06:40 MDM - Extremity (Nontraumatic) Medical Decision Making 47-year-old female with right-sided shoulder pain. On physical exam, she has rotator cuff findings. X-rays show calcific change in the rotator cuff, likely calcific tendinitis.. She is given injections of dexamethasone and Toradol. She is given oxycodone for pain. She will be allowed home with a steroid taper, pain medication. Close outpatient follow-up. Follow-up with PCP. Lab Data Radiology Impressions Shoulder X-Ray 05/27/23 06:01 IMPRESSION: No acute abnormality. All radiology interpretation(s) finalized by discharge Discharge Plan Discharge Patient Disposition: Home Clinical Impression: Rotator cuff impingement syndrome of right shoulder, Calcific tendinitis of right shoulder Condition: Stable Prescriptions: New Percocet 7.5-325 mg tablet 1 tab PO Q6H PRN (Reason: pain) Qty: 10 0RF Medrol (Lars) 4 mg tablets,dose pack See Rx Instructions .ROUTE .COMPLEX Qty: 21 0RF Rx Instructions: orally per package directions No Action hydrochlorothiazide 25 mg tablet 25 mg PO DAILY Rx Instructions: PT STATES SHE HASNT TAKEN FOR A WEEK losartan 100 mg tablet 100 mg PO DAILY Rx Instructions: PT STATES SHE HASNT TAKEN FOR A WEEK Discharge Orders: Discharge ED (Routine); Ordered 05/27/23 Ordered By: Angelito Steiner Referrals: Aguilar Mcgregor DO [Primary Care Provider] - 4-7 days Patient Instructions: Rotator Cuff Injury (ED), Opioid Safety, Pain Management Activity Restrictions/Additional Instructions: Medication as directed. Ice for pain as well. Call your doctor this week for follow-up. Return for any problems. Coding Level of Care Code ED Bead Machine Operator for Lynsey Watt
[2023-05-27] MEDS: dexamethasone 10 mg/mL INJ IM (06:13)
[2023-05-27] MEDS: ketorolac 30 mg/mL INJ IM (06:13)
[2023-05-27] MEDS: oxyCODONE-APAP 5-325 mg Tablet 2 TAB PO (06:14)
[2023-05-27 06:40] VITALS: PULSE 76; RESP 18; O2SAT 97
== END 2023-05-27 06:24 | disposition home or self-care (01) ==
PROVIDERS: Emergency Provider Emergency Medicine; PCP Electrodiagnostic Medicine
DX: M75.41 Impingement syndrome of right shoulder (principal); M75.31 Calcific tendinitis of right shoulder; I10 Essential (primary) hypertension
CPT/HCPCS: 73030; 96372; 99284; J1100; J1885

== ENCOUNTER 2023-06-17 02:51 | Emergency (ER) | payer OTHER, SELFPAY ==
[2023-06-17 02:56] VITALS: BP 185/108; PULSE 66; RESP 20; TEMP 36.6; O2SAT 100; BMI 25.1
[2023-06-17 03:38] VITALS: BP 185/108; PULSE 67; RESP 22; O2SAT 100
[2023-06-17] MEDS: HYDROmorphone 1 mg/mL INJ 1 mL 2 MG IM (04:08)
[2023-06-17] MEDS: dexamethasone 10 mg/mL INJ IM (04:08)
[2023-06-17 04:16] VITALS: PULSE 68; RESP 16; O2SAT 95
[2023-06-17] MEDS: ondansetron 4 MG Tablet 8 MG PO (04:35)
--- NOTE | 2023-06-17 05:12 | ED_ITS ---
HPI - Extremity Problem General: Chief complaint: Extremity Injury, Upper Stated complaint: Right shoulder pain Time Seen by Provider: 06/17/23 03:04 History of Present Illness: 48-year-old female who has been battling shoulder pain since before . Located on the right side. Pain goes from the anterior to the posterior shoulder. There is some radiation out laterally. Severe pain with movement. Pain radiates up to her neck. No fever. She received a cortisone injection to the shoulder at her PCPs clinic 10 days or so ago. This seemed to help for a very short period of time. Associated symptoms: Deny chest pain, fever(s) or rash Review of Systems Const: Denies: fever(s), chills or body aches Eyes: Denies: change in vision Card: Denies: chest pain or palpitations Resp: Denies: dyspnea, productive cough, non-productive cough or wheezing GI: Denies: abdominal pain, nausea, vomiting, diarrhea or hematochezia : Denies: difficulty voiding Skin/Breast: Denies: rash Neuro: Denies: headache(s), weakness in extremities, dizziness or confusion PFSH ED PFSH: Medical History Obesity (BMI 30.0-34.9) No pertinent past medical history neghx: dm,thyroid,dvt/pe Hypertension Surgical History History of cholecystectomy Family History Grandmother Cancer MGM-- stomach cancer that mets to female organs Clotting disorder Mother Diabetes Chronic kidney disease (CKD) Grandfather Diabetes MGF Stroke MGF Father Thyroid cancer CAD (coronary artery disease) [place] Hypertension Stroke Denies family history of Bleeding disorder Social History Smoking and tobacco/nicotine status: never used tobacco/nicotine Alcohol intake: never Additional social history: - Tobacco use: Denies Alcohol use: Denies Drug use: Denies Course Vital Signs: Vital signs: Vital Signs Temperature 98 F 06/17/23 02:56 Pulse Rate 68 06/17/23 04:16 Respiratory Rate 16 06/17/23 04:16 Blood Pressure 185/108 06/17/23 03:38 Pulse Oximetry 95 06/17/23 04:16 Oxygen Delivery Me thod Room Air 06/17/23 03:38 MDM - Extremity (Nontraumatic) Medical Decision Making With such a recent cortisone injection, I would not inject her again. Bedside ultrasound reveals swelling around the biceps tendon, with an at least partial tear of her supraspinatus. She notes that when I saw her last in the ER, she had significant relief at least for a few days. We will place her on a longer steroid taper in hopes of improving her shoulder pain longer. She has a referral in for orthopedic surgery sent by her PCP. She will be allowed discharge. Lab Data I reviewed the patient's lab results. All radiology interpretation(s) finalized by discharge Discharge Plan Discharge Patient Disposition: Home Clinical Impression: Rotator cuff tear arthropathy of right shoulder Condition: Stable Prescriptions: New prednisone 10 mg tablet 10 mg PO DIRECTED Qty: 30 0RF Rx Instructions: 4 [id number], then 3 [id number], then [id number], then 1 [id number] Lidoderm 5 % adhesive patch,medicated See Rx Instructions .ROUTE .COMPLEX Qty: 30 0RF Rx Instructions: leave on most painful area for up to 12 hrs Discontinued methylprednisolone [Medrol (Lars)] 4 mg tablets,dose pack See Rx Instructions .ROUTE .COMPLEX Qty: 21 0RF Rx Instructions: orally per package directions No Action hydrochlorothiazide 25 mg tablet 25 mg PO DAILY Rx Instructions: PT STATES SHE HASNT TAKEN FOR A WEEK losartan 100 mg tablet 100 mg PO DAILY Rx Instructions: PT STATES SHE HASNT TAKEN FOR A WEEK Percocet 7.5-325 mg tablet 1 tab PO Q6H PRN (Reason: pain) Qty: 10 0RF Discharge Orders: Discharge ED (Routine); Ordered 06/17/23 Ordered By: Angelito Almanzar Referrals: Aguilar Mcgregor, [Primary Care Provider] - 4-7 days Discharge Diet: Advance as tolerated Discharge Activity: Limit activity as instructed Patient Instructions: Rotator Cuff Injury (ED), Opioid Safety, Pain Management Stand Alone Forms: Work/School Release Coding Level of Care Code ED Hotel Administrative Assistant for Lynsey Watt
== END 2023-06-17 04:39 | disposition home or self-care (01) ==
PROVIDERS: Emergency Provider Emergency Medicine; PCP Electrodiagnostic Medicine
DX: M75.101 Unspecified rotator cuff tear or rupture of right shoulder, not specified as traumatic (principal); M13.811 Other specified arthritis, right shoulder; I10 Essential (primary) hypertension
CPT/HCPCS: 96372; 99284; J1100; J1170; Q0162

== ENCOUNTER 2023-07-12 07:00 | Outpatient (CLI) | payer OTHER, SELFPAY ==
--- NOTE | 2023-07-12 08:00 | MR_ITS ---
WS: [id number] MRI RIGHT SHOULDER HISTORY: rotator cuff tear COMPARISON: 02/22/2017 TECHNIQUE: Multiplanar sequences of the shoulder joint are submitted. Moderate to severe AC joint arthritis. AC joint arthropathy has increased since 2017. Thickening of t he capsule surrounding the AC joint with increasing fluid and encroachment upon the myotendinous port ion of the supraspinatus. There is a very small amount of fluid in the subacromial and subdeltoid bur sa. Acromial osteophyte within impingement upon the supraspinatus tendon distally. Normal position of the biceps tendon in the bicipital groove. No os acromion. Mild narrowing of the glenohumeral joint. Moderate supraspinatus atrophy without edema. Mild subscapu nia atrophy without edema. Marked tendinopathy in the distal supraspinatus tendon. There is signifi cant subacromial impingement upon the tendon. No definite tendon tear is identified. There is surface fraying along the distal tendon marked tendinopathy. No infraspinatus tear. Marked narrowing of the coracohumeral interval with increased T2 signal in the subscapularis tendon at this location. Suspect there is a tear involving the subscapularis tendon without retraction. This is a near full-thickness tear. These findings are new since the prior exam. Progression of the coracohumeral interval narrowi ng. No labral tear. IMPRESSION: 1. Moderate to severe AC joint arthritis with progression of arthropathy since 2017. 2. Moderate osteophyte encroachment upon the myotendinous portion of the supraspinatus from the AC j oint. 3. Subacromial impingement. 4. Marked tendinopathy in the distal supraspinatus tendon. No tear identified. 5. Moderate supraspinatus atrophy and mild subscapularis atrophy. 6. Increased T2 signal in the subscapularis tendon at the coracohumeral interval. Suspect high-grade tear. New since 2017. 7. No labral tear.
== END 2023-07-12 07:01 | disposition home or self-care (01) ==
LOC: RAD 07:01
PROVIDERS: PCP Electrodiagnostic Medicine; Visit Provider Physician Assistant
DX: M75.101 Unspecified rotator cuff tear or rupture of right shoulder, not specified as traumatic (principal); M13.811 Other specified arthritis, right shoulder; M25.711 Osteophyte, right shoulder; M62.511 Muscle wasting and atrophy, not elsewhere classified, right shoulder
CPT/HCPCS: 73221